=== PATIENT | male | born 1990 | race Caucasian/White ===

== ENCOUNTER 2017-03-20 11:53 | Emergency (ER) | payer OTHER ==
[2017-03-20 14:02] VITALS: BP 118/74
--- NOTE | 2017-03-20 14:36 | UC ---
Throat Pain/Nasal Kieran HPI - HPI Summary HPI Summary: 26 year old male presents with complains of sinus congestion and cough. - History of Current Complaint Chief Complaint: UCRespiratory Stated Complaint: SINUS/COUGH Time Seen by Provider: 03/20/17 14:36 Hx Obtained From: Patient Onset/Duration: Sudden Onset Severity: Moderate Cough: Nonproductive Associated Signs & Symptoms: Positive: Wheezing - Allergies/Home Medications Allergies/Adverse Reactions: Allergies Allergy/AdvReac Type Severity Reaction Status Date / Time Diphenhydramine Allergy Tachycardia Verified 03/20/17 14:03 [From Benadryl] sesonal Allergy Congestion Uncoded 03/20/17 14:03 Home Medications: Home Medications Mucinex Daytime 1 dose PO BID PRN 03/20/17 [History Confirmed 03/20/17] Mucinex Nighttime 1 dose PO QPM PRN 03/20/17 [History Confirmed 03/20/17] PMH/Surg Hx/FS Hx/Imm Hx Previously Healthy: Yes - Surgical History Surgical History: Yes Surgery Procedure, Year, and Place: tooth pulled - Family History Known Family History: Positive: None - Social History Alcohol Use: Weekly Alcohol Amount: 5 Substance Use Type: None Smoking Status (MU): Never Smoked Tobacco Review of Systems Constitutional: Negative Skin: Negative Eyes: Negative ENT: Sore Throat, Nasal Discharge, Sinus Congestion, Sinus Pain/Tenderness Respiratory: Negative Cardiovascular: Negative Gastrointestinal: Negative Genitourinary: Negative Motor: Negative Neurovascular: Negative Musculoskeletal: Negative Neurological: Negative Psychological: Negative All Other Systems Reviewed And Are Negative: Yes Physical Exam Triage Information Reviewed: Yes Vital Signs: Initial Vital Signs Temp 36.6 C 03/20/17 13:59 Pulse 57 03/20/17 13:59 BP 118/74 03/20/17 13:59 Pulse Ox 100 03/20/17 13:59 Vital Signs Reviewed: Yes Eye Exam: Normal ENT: Positive: Nasal congestion, Nasal drainage, Sinus tenderness Dental Exam: Normal Neck exam: Normal Neck: Positive: 1 Respiratory Exam: Normal Cardiovascular Exam: Normal Abdominal Exam: Normal Musculoskeletal Exam: Normal Neurological Exam: Normal Psychological Exam: Normal Skin Exam: Normal Throat Pain/Nasal Course/Dx - Differential Dx/Diagnosis Provider Diagnoses: sinusitis Discharge - Discharge Plan Condition: Stable Disposition: HOME Prescriptions: Amoxicillin/Clavulanate TAB* [Augmentin TAB 875*] 875 mg PO BID #20 tab Guaifenesin-Codeine [Cheratussin AC] 1 teasp PO Q8H PRN #120 ml MDD 15 ml PRN Reason: Cough LoraTADine TAB(NF) [Claritin 10 MG TAB(NF)] 10 mg PO DAILY #30 tab Patient Education Materials: Sinusitis (ED) Referrals: No Primary Care Phys,NOPCP [Primary Care Provider] -
== END 2017-03-20 14:48 | disposition home or self-care (01) ==
LOC: UCCORT 11:53
DX: J32.9 Chronic sinusitis, unspecified (principal); Z88.8 Allergy status to other drugs, medicaments and biological substances; Z91.048 Other nonmedicinal substance allergy status
CPT/HCPCS: 99202; G0463